=== PATIENT | female | born 1975 | race Caucasian/White ===

== ENCOUNTER → 2016-09-17 | Outpatient (CLI) | payer OTHER | LOC: FIMAGING 13:25 | PROVIDERS: ATTEND Family Medicine | DX: N64.4 Mastodynia (principal); Z80.3 Family history of malignant neoplasm of breast ==

== ENCOUNTER 2016-11-22 09:58 | Emergency (ER) | payer OTHER ==
--- NOTE | 2016-11-22 10:14 | CPEKG ---
Heart Rate: 68 RR Interval: 882 P-R Interval: 148 QRSD Interval: 84 QT Interval: 404 QTC Interval: 430 P [place]: 74 QRS [place]: 65 T Wave [place]: 4 EKG Severity - NORMAL ECG - EKG Impression: SINUS RHYTHM Electronically Signed By: Macario Jimenez 22-Nov-2016 10:59:23
[2016-11-22 10:18] VITALS: RESP 18
[2016-11-22 10:24] LABS: % IMMATURE GRANULYOCYTES 0.2 % (0.0-1.1); ABSOLUTE IMMATURE GRANULOCYTES 0.01 10^3/uL (0.00-0.10); ADD DIFF? NO; ADD MORPH? NO; ADD SCAN? NO; ATYPICAL LYMPHOCYTE FLAG 30 (0-99); FRAGMENT RBC FLAG 0 (0-99); HEMOGLOBIN 13.6 g/dL (12.6-16.3); LEFT SHIFT FLG 0 (0-99); LIPEMIA HEMOLYSIS FLAG 90 (0-99); MEAN CELL HEMOGLOBIN 32.9 pg (27.9-34.1); MEAN CELL VOLUME 96.6 fL (81.5-99.8); MEAN PLATELET VOLUME 10.2 fL (8.7-11.7); PLATELET CLUMPS FLAG 0 (0-99); PLATELET COUNT 220 10^3/uL (150-400); RED BLOOD CELL COUNT 4.14 10^6/uL (4.18-5.33); RED CELL DISTRIBUTION WIDTH 12.8 % (11.5-15.2)
[2016-11-22 10:34] LABS: ANION GAP 14 mEq/L (8-16); CALCIUM 9.4 mg/dL (8.5-10.4); CARBON DIOXIDE 21 mEq/l (22-31); CHLORIDE 108 mEq/L (97-110); CREATININE 0.8 mg/dL (0.6-1.0); GLOMERULAR FILTRATION RATE > 60; GLUCOSE 88 mg/dL (70-100); POTASSIUM 3.8 mEq/L (3.5-5.2); SODIUM 143 mEq/L (134-144)
[2016-11-22 10:45] LABS: TROPONIN I < 0.012 ng/mL (0-0.034)
[2016-11-22] MEDS ORDERED: LORazepam 2 MG/ML INJ IVP ONE (10:55)
--- NOTE | 2016-11-22 10:59 | EDPHY ---
H & P Stated Complaint: hx of l ant rib dislocations/but has had increasing l chest wall pain Time Seen by Provider: 11/22/16 10:47 HPI/ROS: CHIEF COMPLAINT: Shortness of breath, left chest pain HISTORY OF PRESENT ILLNESS: The patient is a 41 year old female who comes to the emergency department complaining of shortness of breath over the last couple of days. She has been very concerned because a friend of hers was recently diagnosed with breast cancer that spread to her lung. She also complains of left upper chest tightness which she thinks is musculoskeletal and is improved with chiropractic treatment. her symptoms persisted for the last several days however when she came to the ER at the advice of her physician. She does not take hormones. She exercises frequently. Her pain is not worsened by deep inspiration. No leg pain or swelling. No recent travel. No smoking. No cancer history. REVIEW OF SYSTEMS: Constitutional: denies: chills, fever, recent illness, recent injury EENTM: denies: blurred vision, double vision, nose congestion Respiratory: See HPI Cardiac: denies: chest pain, irregular heart rate, lightheadedness, palpitations Gastrointestinal/Abdominal: denies: abdominal pain, diarrhea, nausea, vomiting, blood streaked stools Genitourinary: denies: dysuria, frequency, hematuria, pain Musculoskeletal: denies: joint pain, muscle pain Skin: denies: lesions, rash, jaundice, bruising Neurological: denies: headache, numbness, paresthesia, tingling, dizziness, weakness Hematologic/Lymphatic: denies: blood clots, easy bleeding, easy bruising Immunologic/allergic: denies: HIV/AIDS, transplant EXAM: GENERAL: Well-appearing, well-nourished and in no acute distress. HEAD: Atraumatic, normocephalic. EYES: Pupils equal round and reactive to light, extraocular movements intact, sclera anicteric, conjunctiva are normal. ENT: TMs normal, nares patent, oropharynx clear without exudates. Moist mucous membranes. NECK: Normal range of motion, supple without lymphadenopathy or JVD. LUNGS: Breath sounds clear to auscultation bilaterally and equal. No wheezes rales or rhonchi. HEART: Regular rate and rhythm without murmurs, rubs or gallops. ABDOMEN: Soft, nontender, normoactive bowel sounds. No guarding, no rebound. No masses appreciated. BACK: No CVA tenderness, no spinal tenderness, step-offs or deformities EXTREMITIES: Normal range of motion, no pitting or edema. No clubbing or cyanosis. NEUROLOGICAL: Cranial nerves II through XII grossly intact. Normal speech, normal gait. 5/5 strength, normal movement in all extremities, normal sensation PSYCH: Normal mood, normal affect. SKIN: Warm, dry, normal turgor, no visible rashes or lesions. Source: Patient Exam Limitations: No limitations - Personal History LMP (Females 10-55): IUD In Place Current Tetanus/Diphtheria Vaccine: Yes - Medical/Surgical History Hx Asthma: No Hx Chronic Respiratory Disease: No Hx Diabetes: No Hx Cardiac Disease: No Hx Renal Disease: No Hx Cirrhosis: No Hx Alcoholism: No Hx HIV/AIDS: No Hx Splenectomy or Spleen Trauma: No Other PMH: Left lumpectomy, left arm nerve transposition - Family History Significant Family History: No pertinent family hx - Social History Smoking Status: Never smoked Alcohol Use: Sober Drug Use: None Constitutional: Initial Vital Signs Temperature (C) 37 C 11/22/16 10:01 Heart Rate 67 11/22/16 10:01 Respiratory Rate 18 11/22/16 10:01 Blood Pressure 140/100 H 11/22/16 10:01 O2 Sat (%) 99 11/22/16 10:01 O2 Delivery Mode Room Air Allergies/Adverse Reactions: No Known Allergies Allergy (Verified 11/22/16 10:00) Home Medications: Medication Instructions Recorded NK [No Known Home Meds] 09/10/14 Medical Decision Making - Diagnostics EKG Interpretation: An EKG obtained and was read and documented in trace view. Please see trace view for full reading and report. Sinus rhythm, T-wave inversion in lead 3 only. Imaging Results: Imaging Impressions Chest X-Ray 11/22/16 10:15 Impression: No acute abnormality. Imaging: Discussed imaging studies w/ call center coordinator Radiologist ED Course/Re-evaluation: Patient is well appearing. Her cardiac workup thus far is negative. She does have T-wave inversions in lead 3 on her EKG. She does not have any risk factors for PE. We agreed to perform a D-dimer. She is asking for anxiety medication. She thinks this may be a combination of muscle strain from rigors exercise and anxiety. I agree that this is possible. She states that she sees her chiropractor frequently for recurrent rib dislocations and muscle strains. 11:40 a.m. we discussed test results. The patient is relieved. A single troponin is reassuring in the setting of several days of symptoms. Patient is very low risk for cardiac disease. She is eager to go home. I suspect that this is musculoskeletal superimposed with some mild anxiety. Patient declines any further workup or testing at this time. We discussed indications for returning. Differential Diagnosis: Partial list of the Differential diagnosis considered include but were not limited to; anxiety, skeletal pain and although unlikely based on the history and physical exam, I also considered acute coronary disease, PE, pneumothorax, fracture. I discussed these differential diagnoses and the plan with the patient as well as the usual and expected course. The patient understands that the diagnosis is provisional and that in medicine we are not always correct and that further workup is often warranted. Usual and customary warnings were given. All of the patient's questions were answered. The patient was instructed to return to the emergency department should the symptoms at all worsen or return, otherwise to followup with the physician as we discussed. - Data Points Laboratory Results: Laboratory Results 11/22/16 10:15 11/22/16 10:15 11/22/16 11/22/16 11/22/16 Unknown 10:15 10:15 WBC 5.75 10^3/uL 10^3/uL (3.80-9.50) RBC 4.14 10^6/uL L 10^6/uL (4.18-5.33) Hgb 13.6 g/dL g/dL (12.6-16.3) Hct 40.0 % % (38.0-47.0) MCV 96.6 fL fL (81.5-99.8) MCH 32.9 pg pg (27.9-34.1) MCHC 34.0 g/dL g/dL (32.4-36.7) RDW 12.8 % % (11.5-15.2) Plt Count 220 10^3/uL 10^3/uL (150-400) MPV 10.2 fL fL (8.7-11.7) Neut % (Auto) 56.0 % % (39.3-74.2) Lymph % (Auto) 27.1 % % (15.0-45.0) [place] % (Auto) 7.7 % % (4.5-13.0) Eos % (Auto) 8.3 % H % (0.6-7.6) Baso % (Auto) 0.7 % % (0.3-1.7) Nucleat RBC Rel Count 0.0 % % (0.0-0.2) Absolute Neuts (auto) 3.22 10^3/uL 10^3/uL (1.70-6.50) Absolute Lymphs (auto) 1.56 10^3/uL 10^3/uL (1.00-3.00) Absolute Monos (auto) 0.44 10^3/uL 10^3/uL (0.30-0.80) Absolute Eos (auto) 0.48 10^3/uL H 10^3/uL (0.03-0.40) Absolute Basos (auto) 0.04 10^3/uL 10^3/uL (0.02-0.10) Absolute Nucleated RBC 0.00 10^3/uL 10^3/uL (0-0.01) Immature Gran % 0.2 % % (0.0-1.1) Immature Gran # 0.01 10^3/uL 10^3/uL (0.00-0.10) D-Dimer < 0.27 ug/mLFEU ug/mLFEU (0.00-0.50) Sodium 143 mEq/L mEq/L (134-144) Potassium 3.8 mEq/L mEq/L (3.5-5.2) Chloride 108 mEq/L mEq/L (97-110) Carbon Dioxide 21 mEq/l L mEq/l (22-31) Anion Gap 14 mEq/L mEq/L (8-16) BUN 10 mg/dL mg/dL (7-23) Creatinine 0.8 mg/dL mg/dL (0.6-1.0) Estimated GFR > 60 Glucose 88 mg/dL mg/dL (70-100) Calcium 9.4 mg/dL mg/dL (8.5-10.4) Troponin I < 0.012 ng/mL ng/mL (0-0.034) Medications Given: Discontinued Medications Lorazepam (Ativan Injection) 0.5 mg IVP EDNOW ONE Stop: 11/22/16 10:56 Last Admin: 11/22/16 10:59 Dose: 0.5 mg Departure - Departure Disposition: Home, Routine, Self-Care Clinical Impression: Anxiety about health, Chest wall pain Condition: Fair Instructions: Chest Wall Pain (ED) Referrals: Macario Byrd DO [Primary Care Provider] - As per Instructions
[2016-11-22 12:02] VITALS: BP 121/92; PULSE 73; TEMP 98.1; O2SAT 97
== END 2016-11-22 12:02 | disposition home or self-care (01) ==
DX: R07.89 Other chest pain (principal); F41.9 Anxiety disorder, unspecified
CPT/HCPCS: 96374; J2060

== ENCOUNTER → 2017-02-21 | Outpatient (CLI) | payer OTHER | LOC: FLAB 14:10 | PROVIDERS: ATTEND Family Medicine | DX: M25.562 Pain in left knee (principal) ==

== ENCOUNTER → 2017-02-23 | Outpatient (CLI) | payer OTHER | LOC: FIMAGING 15:22 | PROVIDERS: ATTEND Family Medicine | DX: Z12.31 Encounter for screening mammogram for malignant neoplasm of breast (principal); Z80.3 Family history of malignant neoplasm of breast ==

== ENCOUNTER → 2018-03-31 | Outpatient (CLI) | payer OTHER | LOC: BMCIMAGING 13:52 | PROVIDERS: ATTEND Family Medicine | DX: M25.512 Pain in left shoulder (principal); W00.9XXA Unspecified fall due to ice and snow, initial encounter ==

== ENCOUNTER → 2018-04-10 | Outpatient (CLI) | payer OTHER | LOC: FIMAGING 13:01 | PROVIDERS: ATTEND Family Medicine | DX: N83.292 Other ovarian cyst, left side (principal); Z97.5 Presence of (intrauterine) contraceptive device ==

== ENCOUNTER → 2018-04-13 | Outpatient (CLI) | payer OTHER | LOC: BMCIMAGING 14:05 | PROVIDERS: ATTEND Family Medicine | DX: M25.532 Pain in left wrist (principal); M79.642 Pain in left hand ==

== ENCOUNTER → 2018-08-01 | Outpatient (CLI) | payer OTHER | LOC: BMCIMAGING 13:48 | PROVIDERS: ATTEND Family Medicine | DX: M25.531 Pain in right wrist (principal) ==

== ENCOUNTER → 2018-08-07 | Outpatient (CLI) | payer OTHER | LOC: FIMAGING 09:07 ==